=== PATIENT | male | born 1995 | race American Indian/Alaskan Native ===

== ENCOUNTER 2017-05-13 02:21 | Emergency (ER) | payer SELFPAY ==
[2017-05-13 03:09] LABS: Basophils % (Auto) 0.2 % (0.0-1.8); Hematocrit 43.5 % (35.5-45.6); Hemoglobin 14.8 gm/dl (11.8-15.2); Mean Corpuscular HGB Conc 34 % (32-34); Mean Corpuscular Hemoglobin 31 pg (28-32); Mean Corpuscular Volume 92 fl (84-94); Platelet Count 244 K/mm3 (140-440); Red Blood Count 4.73 M/mm3 (3.65-5.03); Red Cell Distribution Width 13.5 % (13.2-15.2); White Blood Count 14.2 K/mm3 (4.5-11.0)
[2017-05-13 03:21] LABS: Alanine Aminotransferase 20 units/L (7-56); Albumin/Globulin Ratio 1.1 %; Alkaline Phosphatase 73 units/L (35-129); Anion Gap 29 mmol/L; BUN/Creatinine Ratio 17; Blood Urea Nitrogen 19 mg/dL (9-20); Calcium 10.8 mg/dL (8.4-10.2); Carbon Dioxide 17 mmol/L (22-30); Chloride 94.9 mmol/L (98-107); Glucose 124 mg/dL (75-100); Lipase 12 units/L (13-60); Potassium 3.6 mmol/L (3.6-5.0); Sodium 137 mmol/L (137-145); Total Protein 9.4 g/dL (6.3-8.2)
[2017-05-13] MEDS ORDERED: TORADOL ONE (03:44)
[2017-05-13] MEDS ORDERED: ZOFRAN ONE (03:44)
[2017-05-13] MEDS ORDERED: NACL 0.9% 1000 ML 1,000 ML ONE (03:45)
[2017-05-13] MEDS ORDERED: ZOFRAN IV ONE (03:53)
[2017-05-13] MEDS ORDERED: TORADOL IV ONE (03:53)
[2017-05-13] MEDS ORDERED: NACL 0.9% 1000 ML 1,000 ML IV ONE ×2 (03:54→13:35)
--- NOTE | 2017-05-13 04:52 | Cat Scan Report ---
FINAL REPORT EXAM: CT ABDOMEN PELVIS W/O CONTRAST. HISTORY: Abdominal pain. TECHNIQUE: Unenhanced axial CT images of the abdomen and pelvis were obtained, with coronal and sagittal reformatted images. No prior studies are available for comparison. FINDINGS: The unenhanced liver, biliary tree, gallbladder, pancreas, spleen, and adrenal glands are unremarkable. The unenhanced kidneys demonstrate no discrete renal lesions. There are no radiopaque urinary tract calculi or evidence of urinary tract obstruction. Evaluation of the bowel is limited due to lack of oral contrast. The left colon and rectum are collapsed, not well evaluated. There is no intestinal obstruction or free air. Of note, the appendix is air-filled, normal in appearance. The abdominal aorta is normal in caliber. There is no pathologic abdominal or pelvic lymphadenopathy. There is no free or loculated fluid collection. The urinary bladder is not well distended, though grossly unremarkable. The prostate gland is normal in size. There is minimal 2 mm retrolisthesis of L5 on S1. The visualized lung bases are clear. IMPRESSION: 1. No radiopaque urinary tract calculi or evidence of urinary tract obstruction. 2. No intestinal obstruction or free air. Normal CT appearance of the appendix.
[2017-05-13 05:47] LABS: Bilirubin,Urine NEG (Negative); Blood,Urine MOD (Negative); Ketones,Urine 80 mg/dL (Negative); Leukocyte Esterase,Urine NEG (Negative); Mucus,Urine 3+ /HPF; Nitrite,Urine NEG (Negative); Urobilinogen,Urine < 2.0 mg/dL (<2.0)
[2017-05-13] MEDS ORDERED: PEPCID PO ONE (13:36)
--- NOTE | 2017-05-13 13:39 | Emergency Department Report ---
<KAYLA GARCIA - Last Filed: 05/13/17 16:02> ED Abdominal Pain HPI - General Chief Complaint: Abdominal Pain Stated Complaint: abdominal pain last pm. here 12 hours. now resolved. Time Seen by Provider: 05/13/17 13:35 Source: patient Mode of arrival: Ambulatory Limitations: No Limitations - History of Present Illness MD Complaint: abdominal pain -: Sudden Severity scale (0 -10): 0 Consistency: now resolved Improves With: nothing Worsens With: nothing Associated Symptoms: nausea, vomiting, diarrhea. denies: fever, chills, constipation, dysuria, hematemesis, hematochezia, melena, hematuria, anorexia, syncope - Related Data Allergies Allergy/AdvReac Type Severity Reaction Status Date / Time No Known Allergies Allergy Unverified 05/13/17 02:31 ED Review of Systems ROS: Stated complaint: N/V/D Other details as noted in HPI Comment: All other systems reviewed and negative Constitutional: no symptoms reported Gastrointestinal: abdominal pain, nausea, vomiting, diarrhea. denies: constipation, hematemesis, melena, hematochezia Genitourinary: as per HPI ED Past Medical Hx - Past Medical History Previous Medical History?: No - Surgical History Past Surgical History?: No - Family History Family history: no significant - Social History Smoking Status: Never Smoker Substance Use Type: None ED Physical Exam - General Limitations: No Limitations General appearance: in no apparent distress - Head Head exam: Present: atraumatic - Eye Eye exam: Present: PERRL - ENT ENT exam: Present: mucous membranes dry - Neck Neck exam: Present: normal inspection - Respiratory Respiratory exam: Present: normal lung sounds bilaterally - Cardiovascular Cardiovascular Exam: Present: regular rate - GI/Abdominal GI/Abdominal exam: Present: soft, normal bowel sounds. Absent: distended, tenderness, guarding, rebound, rigid, diminished bowel sounds, hyperactive bowel sounds, hypoactive bowel sounds, organomegaly, mass, bruit, pulsatile mass , hernia - Rectal Rectal exam: Present: deferred - Extremities Exam Extremities exam: Present: normal inspection - Back Exam Back exam: Present: normal inspection, full ROM. Absent: tenderness, CVA tenderness (R), CVA tenderness (L) - Neurological Exam Neurological exam: Present: alert, oriented X3, CN II-XII intact, normal gait - Psychiatric Psychiatric exam: Present: normal affect, normal mood - Skin Skin exam: Present: warm, dry, intact ED Course Vital Signs 05/13/17 05/13/17 02:26 15:46 Temperature 97.4 F L Pulse Rate 75 85 Respiratory 17 18 Rate Blood Pressure 144/78 Blood Pressure 113/69 [Right] O2 Sat by Pulse 99 99 Oximetry - Reevaluation(s) Reevaluation #1: 05/13/17 14:43 to er last night w severe abd pain he was noted to have hematuria pt thought that it was due to apple juice the pain was acute and went away as fast as it came. he waited 12 hours to be seen in fast track on arrival he was ambulatory and asking to eat abd exam benign snt no n/v/d orthostatic hr on exam sp vomiting with the pain last pm also had some diarrhea he states the pain was periumbilical and denied any dysuria he did not note hematuria when urinating his HPI is consistent with passing of stone. Along w hematuria he has no allergies he is on no meds and is otherwise healthy labs noted ct noted discussed with Dr. Paiz Reevaluation #2: orthostatic bp and hr noted 1L NS taking po. ate lunch and is asking is for more fluid ambulatory and in nad fluids infusing Reevaluation #3: 05/13/17 16:03 PT NOW MONITORED OVER 15 HOURS IN ER EATING VSS NAD NO FEVER NO PAIN N/V/D TAKING PO AND ASKING FOR MORE VOIDING CLEAR GENO URINE WO DIFFICULTY GIVEN NO FEVER AND NONTOX WE ARE GIVING NO ABX W SLIGHT INC WBC PT WILL FU WITH URO. REPEAT UA AND CX SENT CALL PT IF CONCERNING AND NEEDING ANBX ED Medical Decision Making - Lab Data Result diagrams: 05/13/17 02:51 05/13/17 02:51 - Radiology Data Radiology results: report reviewed - Medical Decision Making see note - Differential Diagnosis abd pain acute- now resolved; hematuria Critical care attestation.: If time is entered above; I have spent that time in minutes in the direct care of this critically ill patient, excluding procedure time. ED Disposition Disposition: DC-01 TO HOME OR SELFCARE Is pt being admited?: No Does the pt Need Aspirin: No Condition: Stable Instructions: Kidney Stones (ED), Acute Hematuria (ED) Additional Instructions: rest fluids- hydrate well advance diet as tolerated follow up with urology Referrals: PRIMARY CARE, [Primary Care Provider] - 3-5 Days SUZEI ESCOTO JR, MD [Staff Physician] - 3-5 Days ABBITA ESPINO MD [Staff Physician] - 3-5 Days Time of Disposition: 14:42 <ELAINE PAIZ - Last Filed: 05/17/17 19:34> ED Medical Decision Making - Lab Data Result diagrams: 05/13/17 02:51 05/13/17 02:51
[2017-05-13 15:47] VITALS: BP 113/69
[2017-05-13 16:23] LABS: Bilirubin,Urine NEG (Negative); Blood,Urine SM (Negative); Ketones,Urine NEG (Negative); Leukocyte Esterase,Urine NEG (Negative); Mucus,Urine FEW /HPF; Nitrite,Urine NEG (Negative); Urobilinogen,Urine < 2.0 mg/dL (<2.0); WBC,Urine < 1.0 /HPF (0.0-6.0)
== END 2017-05-13 15:35 | disposition home or self-care (01) ==
LOC: ED 02:21
DX: R31.9 Hematuria, unspecified (principal); R10.9 Unspecified abdominal pain; R11.2 Nausea with vomiting, unspecified; R19.7 Diarrhea, unspecified
CPT/HCPCS: 36415; 74176; 80053; 81001; 83690; 85025; 87086; 96361; 96374; 96375; 99284; J1885; J2405; J7030

== ENCOUNTER 2019-11-22 10:21 | Emergency (ER) | payer OTHER ==
[2019-11-22] MEDS ORDERED: FAMOTIDINE 20 MG/2 ML INJ IV ONE (10:38)
[2019-11-22] MEDS ORDERED: SODIUM CHLORIDE 0.9% 1000 ML 1,000 ML IV ONE (10:38)
[2019-11-22] MEDS ORDERED: HALOPERIDOL LACTATE 5 MG/1 ML INJ IM STA (10:38)
--- NOTE | 2019-11-22 10:46 | Emergency Department Report ---
ED General Adult HPI - General Chief complaint: Abdominal Pain Stated complaint: ABD PAIN PUI?: No Time Seen by Provider: 11/22/19 10:31 Source: patient, EMS ( EMS documentation not available at time of chart dictation ), RN notes reviewed, old records reviewed Mode of arrival: Stretcher Limitations: No Limitations - History of Present Illness Initial comments: Patient is a 24-year-old gentleman. He does not have a local primary care doctor. He denies chronic medical conditions. He is brought to the hospital by emergency medical services for nausea and vomiting. Please note that this patient has been seen here in the past multiple times for similar complaints. He has had 2 CT scans of the abdomen pelvis which have been negative for acute pathology, and laboratory work which demonstrated dehydration, but otherwise, fairly unremarkable. He denies fever and cough. He does not think he has been exposed to the piña virus. He presents to the ER today with complaints of nausea and vomiting, accompanied by abdominal cramping, without diarrhea. No fever, no headache, no cough, no testicular pain, no urinary symptoms. His symptoms are waxing and waning, and sometimes improve when he takes a hot bath or hot shower. The patient states he does not consume marijuana, and denies secondhand exposure to marijuana. In the emergency room, he is given fluids and haloperidol, which improved his symptoms. He requested pain medicine, and was given acetaminophen and Carafate, which also seem to improve his symptoms. -: Gradual, hour(s) Location: abdomen Radiation: non-radiation Severity scale (0 -10): 10 Quality: other (Cramp) Consistency: intermittent Improves with: medication Worsens with: eating - Related Data Previous Rx's Medication Instructions Recorded Last Taken Type Esomeprazole Magnesium [NexIUM] 40 mg PO QDAY #30 capsule. 07/22/19 Unknown Rx Ondansetron [Zofran Odt] 4 mg PO Q4HR PRN #20 tab.fang 07/22/19 Unknown Rx Acetaminophen [Non-Aspirin Extra 500 mg PO Q6HR PRN #30 tablet 11/22/19 Unknown Rx Strength] Famotidine [Pepcid] 20 mg PO BID #60 tablet 11/22/19 Unknown Rx Kathrine Root [Kathrine] 250 mg PO QID PRN #30 capsule 11/22/19 Unknown Rx Metoclopramide [Reglan] 10 mg PO QID PRN #30 tablet 11/22/19 Unknown Rx Potassium Chloride [K-Dur] 20 meq PO BID #20 tab 11/22/19 Unknown Rx Allergies Allergy/AdvReac Type Severity Reaction Status Date / Time peanut Allergy Unknown Verified 07/21/19 21:35 ED Review of Systems ROS: Stated complaint: ABD PAIN Other details as noted in HPI Constitutional: denies: fever Eyes: denies: eye discharge ENT: denies: other Respiratory: denies: wheezing Cardiovascular: denies: syncope Gastrointestinal: nausea, vomiting Genitourinary: denies: testicular pain Musculoskeletal: as per HPI Skin: as per HPI. denies: lesions Neurological: as per HPI. denies: weakness Psychiatric: as per HPI Hematological/Lymphatic: denies: easy bleeding ED Past Medical Hx - Past Medical History Previous Medical History?: No - Surgical History Past Surgical History?: No - Social History Smoking Status: Never Smoker - Medications Home Medications: Home Medications Medication Instructions Recorded Confirmed Last Taken Type Esomeprazole Magnesium [NexIUM] 40 mg PO QDAY #30 capsule. 07/22/19 Unknown Rx Ondansetron [Zofran Odt] 4 mg PO Q4HR PRN #20 tab.rapdis 07/22/19 Unknown Rx Acetaminophen [Non-Aspirin Extra 500 mg PO Q6HR PRN #30 tablet 11/22/19 Unknown Rx Strength] Famotidine [Pepcid] 20 mg PO BID #60 tablet 11/22/19 Unknown Rx Kathrine Root [Kathrine] 250 mg PO QID PRN #30 capsule 11/22/19 Unknown Rx Metoclopramide [Reglan] 10 mg PO QID PRN #30 tablet 11/22/19 Unknown Rx Potassium Chloride [K-Dur] 20 meq PO BID #20 tab 11/22/19 Unknown Rx ED Physical Exam - General Limitations: No Limitations General appearance: alert, anxious, in distress - Head Head exam: Present: atraumatic, normocephalic - Eye Eye exam: Present: normal appearance, EOMI. Absent: nystagmus - ENT ENT exam: Present: normal exam, normal orophraynx, mucous membranes moist, normal external ear exam - Neck Neck exam: Present: normal inspection, full ROM. Absent: tenderness, meningismus - Respiratory Respiratory exam: Present: normal lung sounds bilaterally. Absent: respiratory distress - Cardiovascular Cardiovascular Exam: Present: normal rhythm, bradycardia, normal heart sounds. Absent: tachycardia, irregular rhythm, systolic murmur, diastolic murmur, rubs, gallop - GI/Abdominal GI/Abdominal exam: Present: soft, normal bowel sounds. Absent: distended, tenderness, guarding, rebound, rigid, pulsatile mass - Rectal Rectal exam: Present: deferred - Extremities Exam Extremities exam: Present: normal inspection, full ROM, other (2+ pulses noted in the bilateral upper and lower extremities. There is no palpable cord. negative Homans sign. Muscular compartments are soft. The pelvis is stable.). Absent: pedal edema, calf tenderness - Back Exam Back exam: Present: normal inspection, full ROM. Absent: tenderness, CVA t enderness (R), CVA tenderness (L), paraspinal tenderness, vertebral tenderness - Neurological Exam Neurological exam: Present: alert, normal gait, other (No facial droop. Tongue midline. Extraocular movements intact bilaterally. Facial sensation intact to light touch in V1, V2, V3 distribution bilaterally. 5 and a 5 strength in 4 extremities. Sensation intact to light touch in 4 extremities.). Absent: motor sensory deficit - Psychiatric Psychiatric exam: Present: anxious - Skin Skin exam: Present: warm, dry, intact, normal color. Absent: rash ED Course Vital Signs 11/22/19 11/22/19 11/22/19 10:29 10:30 10:33 Temperature 98.4 F Pulse Rate 63 78 72 Respiratory 15 18 19 Rate Blood Pressure Blood Pressure 132/67 [Right] O2 Sat by Pulse 100 97 100 Oximetry 11/22/19 11/22/19 11/22/19 10:46 11:51 12:58 Temperature Pulse Rate 76 53 L 50 L Respiratory 36 H 14 18 Rate Blood Pressure 132/67 Blood Pressure 135/69 133/60 [Right] O2 Sat by Pulse 99 100 100 Oximetry - Reevaluation(s) Reevaluation #1: 11/22/19 12:47 No active vomiting. Urinalysis is appreciated, urine toxicology screen suggest the presence of cannabinoid exposure. Patient suitable for discharge at this time. He is clinically sober at this time. ED Medical Decision Making - Lab Data Result diagrams: 11/22/19 10:58 11/22/19 10:58 Vital Signs 11/22/19 11/22/19 11/22/19 10:29 10:30 10:33 Temperature 98.4 F Pulse Rate 63 78 72 Respiratory 15 18 19 Rate Blood Pressure Blood Pressure 132/67 [Right] O2 Sat by Pulse 100 97 100 Oximetry 11/22/19 11/22/19 10:46 11:51 Temperature Pulse Rate 76 53 L Respiratory 36 H 14 Rate Blood Pressure 132/67 Blood Pressure 135/69 [Right] O2 Sat by Pulse 99 100 Oximetry Lab Results 11/22/19 11/22/19 11/22/19 Range/Units 10:58 10:58 10:58 Hgb 12.7 (11.8-15.2) gm/dl Hct 37.5 (35.5-45.6) % Plt Count 243 (140-440) K/mm3 Sodium 138 (137-145) mmol/L Potassium 3.3 L (3.6-5.0) mmol/L Chloride 102.8 (98-107) mmol/L Carbon Dioxide 20 L (22-30) mmol/L Anion Gap 19 mmol/L BUN 9 (9-20) mg/dL Creatinine 1.0 (0.8-1.5) mg/dL Estimated GFR > 60 ml/min BUN/Creatinine Ratio 9 % Glucose 167 H (75-100) mg/dL Calcium 10.1 (8.4-10.2) mg/dL Magnesium 1.70 (1.7-2.3) mg/dL Total Bilirubin 0.70 (0.1-1.2) mg/dL AST 23 (5-40) units/L ALT 19 (7-56) units/L Alkaline Phosphatase 76 (35-129) units/L Total Creatine Kinase 196 H (55-170) units/L Total Protein 7.7 (6.3-8.2) g/dL Albumin 4.3 (3.9-5) g/dL Albumin/Globulin Ratio 1.3 % Lipase 23 (13-60) units/L - EKG Data -: EKG Interpreted by Or Rate: bradycardia - EKG Data When compared to previous EKG there are: previous EKG unavailable 11/22/19 12:13 There is no prior EKG available for comparison. Sinus rhythm, normal axis, bradycardia, 58 bpm, AK interval prolonged, 251 ms. QTC prolonged, 463 ms. High left ventricular voltage. EKG is abnormal, there is no prior for comparison. Not a STEMI - Medical Decision Making Differential diagnosis, including but not limited to: Cyclic vomiting syndrome, cannabinoid hyperemesis syndrome, dehydration, electrolyte derangement Assessment and plan: 24-year-old gentleman, with recurrence of nausea and vomiting, has had multiple unremarkable work-ups at this hospital in the past, who endorses improvement in symptoms when he takes a hot bath or hot shower. He denies marijuana consumption to me. He is clinically sober at this time, with a GCS of 15. I suspect the patient is being dishonest about marijuana consumption, as it is fairly ubiquitous in this particular locale. Patient treated empirically with fluids and haloperidol, and supportive therapy, which improved his symptoms. He was given oral medications, which improved his symptoms. He does not meet criteria for hospitalization or admission at this time. He will need to follow-up with outpatient gastroenterology. He can also follow- up with an outpatient primary care doctor or regulatory affairs intern for monitoring of his incidental asymptomatic EKG abnormalities. 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 No arrhythmias were noted. Critical care attestation.: If time is entered above; I have spent that time in minutes in the direct care of this critically ill patient, excluding procedure time. ED Disposition Clinical Impression: History of nausea, Hypokalemia, Abnormal EKG Disposition: DC-01 TO HOME OR SELFCARE Is pt being admited?: No Does the pt Need Aspirin: No Condition: Stable Additional Instructions: Avoid consumption of Motrin, ibuprofen, Naprosyn, Aleve, heavy and/or spicy foods. Avoid consumption of alcohol. Avoid consumption and exposure to marijuana, cannabis, which is likely causing/contributing to the patient's symptoms. Take the pain medication, nausea medication as needed and directed. Follow-up with your primary care doctor within the next [address] Garibay is a local primary care doctor. Follow-up with a instructional resource teacher within the next [address] Lyles is a local instructional resource teacher. EKG demonstrated nonspecific nonemergent abnormalities, which should be monit ored and followed up by either a primary care doctor or regulatory affairs intern. Patient may follow-up with the aforementioned primary care doctor, or follow-up with a local regulatory affairs intern, such as Dr. Rodriguez, as an outpatient. Please return to the emergency room right away with projectile vomiting, change in mental status, confusion, inability to tolerate liquid feeds, worsened pain, migration of pain, or new, worsened or different symptoms not present on the initial emergency room evaluation. In addition to the prescribed pain medications, patient may purchase hot sauce [id number] at any local supermarket, rub it on his abdomen when he is having symptoms, and this may assist with his symptoms. Prescriptions: Kathrine Root [Kathrine] 250 mg PO QID PRN #30 capsule PRN Reason: Nausea Potassium Chloride [K-Dur] 20 meq PO BID #20 tab Acetaminophen [Non-Aspirin Extra Strength] 500 mg PO Q6HR PRN #30 tablet PRN Reason: Pain , Severe (7-10) Famotidine [Pepcid] 20 mg PO BID #60 tablet Metoclopramide [Reglan] 10 mg PO QID PRN #30 tablet PRN Reason: Nausea Referrals: REMEDIOS GARIBAY MD [Staff Physician] - 7-10 days MUNDO DASH MD [Staff Physician] - as needed CARMEN RODRIGUEZ MD [Staff Physician] - as needed
[2019-11-22] MEDS ORDERED: D5W/0.45% NACL 1,000 ML IV SCH (11:00)
[2019-11-22 11:38] LABS: Hematocrit 37.5 % (35.5-45.6); Hemoglobin 12.7 gm/dl (11.8-15.2)
[2019-11-22 11:55] LABS: Alanine Aminotransferase 19 units/L (7-56); Albumin 4.3 g/dL (3.9-5); BUN/Creatinine Ratio 9; Blood Urea Nitrogen 9 mg/dL (9-20); Calcium 10.1 mg/dL (8.4-10.2); Hemolysis Index 6
[2019-11-22] MEDS ORDERED: POTASSIUM CHLORIDE ER 20 MEQ TAB PO ONE (11:58)
[2019-11-22] MEDS ORDERED: SUCRALFATE 1 GM/10 ML ORAL LIQD PO ONE (11:59)
[2019-11-22] MEDS ORDERED: ACETAMINOPHEN 325 MG TAB PO ONE (11:59)
[2019-11-22 12:25] LABS: Bacteria,Urine 1+ /HPF (Negative); Bilirubin,Urine NEG (Negative); Blood,Urine NEG (Negative); Color,Urine Yellow (Yellow); Mucus,Urine FEW /HPF; Urobilinogen,Urine < 2.0 mg/dL (<2.0)
[2019-11-22 12:27] LABS: Amphetamine Screen,Urine PRESUMPTIVE NEGATIVE; Benzodiazepines Screen,Urine PRESUMPTIVE NEGATIVE; Cocaine Screen,Urine PRESUMPTIVE NEGATIVE; Methadone Screen,Urine PRESUMPTIVE NEGATIVE; Opiate Screen,Urine PRESUMPTIVE NEGATIVE
[2019-11-22 12:45] LABS: Cannabinoid Screen,Urine PRESUMPTIVE POSITIVE
[2019-11-22 12:59] VITALS: BP 133/60
== END 2019-11-22 13:26 | disposition home or self-care (01) ==
LOC: ED 10:21
DX: E87.6 Hypokalemia (principal); R94.31 Abnormal electrocardiogram [ECG] [EKG]; Z79.899 Other long term (current) drug therapy; Z91.010 Allergy to peanuts
CPT/HCPCS: 36415; 80053; 80307; 81001; 82550; 83690; 83735; 85014; 85018; 85049; 93005; 96361; 96372; 96374; 99284; J1630; J7030

== ENCOUNTER 2019-11-25 11:32 | Emergency (ER) | payer OTHER ==
[2019-11-25] MEDS ORDERED: PANTOPRAZOLE 40 MG INJ IV ONE (11:53)
[2019-11-25] MEDS ORDERED: ONDANSETRON 4 MG/2 ML INJ IV ONE (11:53)
[2019-11-25] MEDS ORDERED: SODIUM CHLORIDE 0.9% 1000 ML 1,000 ML IV ONE (11:53)
[2019-11-25] MEDS ORDERED: METOCLOPRAMIDE 10 MG/2 ML INJ IV ONE (11:54)
--- NOTE | 2019-11-25 11:57 | Emergency Department Report ---
ED Abdominal Pain HPI - General Chief Complaint: Abdominal Pain Stated Complaint: VOMIT/DIARRHEA/STOMACH PAIN Time Seen by Provider: 11/25/19 11:45 Source: patient Mode of arrival: Ambulatory Limitations: No Limitations - History of Present Illness Initial Comments: Patient is 24 years old male with no significant past medical history. Patient presented to the ER complaining of diffuse abdominal pain, crampy in nature associated with nausea and vomiting. Patient denied any fever or chills. 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 Patient stated the symptoms improved a little bit and then last night he started vomiting again and having abdominal pain. Patient had a multiple ER visit for similar complaint before MD Complaint: abdominal pain -: days(s) (5) Location: diffuse Radiation: none Migration to: no migration Severity: moderate Quality: cramping - Related Data Previous Rx's Medication Instructions Recorded Last Taken Type Esomeprazole Magnesium [NexIUM] 40 mg PO QDAY #30 capsule. 07/22/19 Unknown Rx Ondansetron [Zofran Odt] 4 mg PO Q4HR PRN #20 tab.rapdis 07/22/19 Unknown Rx Acetaminophen [Non-Aspirin Extra 500 mg PO Q6HR PRN #30 tablet 11/22/19 Unknown Rx Strength] Famotidine [Pepcid] 20 mg PO BID #60 tablet 11/22/19 Unknown Rx Kathrine Root [Kathrine] 250 mg PO QID PRN #30 capsule 11/22/19 Unknown Rx Metoclopramide [Reglan] 10 mg PO QID PRN #30 tablet 11/22/19 Unknown Rx Potassium Chloride [K-Dur] 20 meq PO BID #20 tab 11/22/19 Unknown Rx Allergies Allergy/AdvReac Type Severity Reaction Status Date / Time peanut Allergy Unknown Verified 07/21/19 21:35 ED Review of Systems ROS: Stated complaint: VOMIT/DIARRHEA/STOMACH PAIN Other details as noted in HPI Comment: All other systems reviewed and negative Constitutional: denies: chills, fever Respiratory: denies: cough, shortness of breath, SOB with exertion Cardiovascular: denies: chest pain, palpitations Gastrointestinal: abdominal pain, nausea, vomiting, constipation. denies: diarrhea, hematemesis, melena, hematochezia ED Past Medical Hx - Past Medical History Previous Medical History?: No - Surgical History Past Surgical History?: No - Social History Smoking Status: Never Smoker Substance Use Type: Marijuana - Medications Home Medications: Home Medications Medication Instructions Recorded Confirmed Last Taken Type Esomeprazole Magnesium [NexIUM] 40 mg PO QDAY #30 capsule. 07/22/19 Unknown Rx Ondansetron [Zofran Odt] 4 mg PO Q4HR PRN #20 tab.fang 07/22/19 Unknown Rx Acetaminophen [Non-Aspirin Extra 500 mg PO Q6HR PRN #30 tablet 11/22/19 Unknown Rx Strength] Famotidine [Pepcid] 20 mg PO BID #60 tablet 11/22/19 Unknown Rx Kathrine Root [Kathrine] 250 mg PO QID PRN #30 capsule 11/22/19 Unknown Rx Metoclopramide [Reglan] 10 mg PO QID PRN #30 tablet 11/22/19 Unknown Rx Potassium Chloride [K-Dur] 20 meq PO BID #20 tab 11/22/19 Unknown Rx ED Physical Exam - General Limitations: No Limitations General appearance: alert, in no apparent distress - Head Head exam: Present: atraumatic, normocephalic, normal inspection - Eye Eye exam: Present: normal appearance - ENT ENT exam: Present: mucous membranes dry - Neck Neck exam: Present: normal inspection, full ROM. Absent: tenderness, meningismus, lymphadenopathy, thyromegaly - Respiratory Respiratory exam: Present: normal lung sounds bilaterally - Cardiovascular Cardiovascular Exam: Present: regular rate, normal rhythm, normal heart sounds - GI/Abdominal GI/Abdominal exam: Present: soft, tenderness, normal bowel sounds. Absent: distended, guarding, rebound, rigid, organomegaly, mass, bruit, pulsatile mass, hernia - Extremities Exam Extremities exam: Present: normal inspection, full ROM, normal capillary refill. Absent: pedal edema, calf tenderness - Back Exam Back exam: Present: normal inspection, full ROM. Absent: CVA tenderness (R), CVA tenderness (L) - Neurological Exam Neurological exam: Present: alert, oriented X3, CN II-XII intact, normal gait, reflexes normal. Absent: motor sensory deficit - Psychiatric Psychiatric exam: Present: normal mood - Skin Skin exam: Present: warm, intact, normal color ED Course Vital Signs 11/25/19 11/25/19 11/25/19 11:36 11:37 13:19 Temperature 97.8 F 97.8 F Pulse Rate 64 65 84 Respiratory 24 24 16 Rate Blood Pressure 131/66 [Left] O2 Sat by Pulse 100 100 96 Oximetry ED Medical Decision Making - Lab Data Result diagrams: 11/25/19 12:25 11/25/19 12:25 - Radiology Data Radiology results: report reviewed - Medical Decision Making Patient is 24 years old male with no significant past medical history. Patient presented to the ER complaining of diffuse abdominal pain, crampy in nature associated with nausea and vomiting. Patient denied any fever or chills. 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 Patient stated the symptoms improved a little bit and then last night he started vomiting again and having abdominal pain. Patient had a multiple ER visit for similar complaint before. Patient received normal saline, Reglan, Benadryl, Benadryl and Protonix. Patient stated that he is feeling much better. Labs showed potassium of 2.7. Patient given 20 mEq IV and [address] abdomen and pelvis with IV contrast is negative for acute finding.patient is no longer vomiting and stated that he is wanted to go home. Patient UDS showed marijuana. Given his similar presentation before I suspected cannabinoid syndrome, I counseled the patient about cessation of marijuana. Patient also advised to follow-up with her GI doctor for further management. Critical care attestation.: If time is entered above; I have spent that time in minutes in the direct care of this critically ill patient, excluding procedure time. ED Disposition Clinical Impression: Cannabinoid hyperemesis syndrome, Hypokalemia, Abdominal pain, Nausea and vomiting Disposition: -01 TO HOME OR SELFCARE Is pt being admited?: No Condition: Stable Instructions: Abdominal Pain (ED) Referrals: YASMIN NGUYỄN MD [Primary Care Provider] - 3-5 Days [facility] [Provider Group] - 3-5 Days
[2019-11-25 12:48] LABS: Basophils % (Auto) 0.1 % (0.0-1.8); Hemoglobin 14.2 gm/dl (11.8-15.2); Lymphocytes # (Auto) 1.8 K/mm3 (1.2-5.4); Lymphocytes % (Auto) 19.5 % (13.4-35.0); Mean Corpuscular HGB Conc 35 % (32-34); Mean Corpuscular Volume 94 fl (84-94); Monocytes # (Auto) 0.6 K/mm3 (0.0-0.8); Monocytes % (Auto) 6.9 % (0.0-7.3); Platelet Count 310 K/mm3 (140-440); Red Blood Count 4.35 M/mm3 (3.65-5.03); Red Cell Distribution Width 14.1 % (13.2-15.2)
[2019-11-25 12:58] LABS: Bilirubin,Urine NEG (Negative); Blood,Urine NEG (Negative); Color,Urine Straw (Yellow); Protein,Urine <15 mg/dL mg/dL (Negative); Urobilinogen,Urine < 2.0 mg/dL (<2.0); WBC,Urine < 1.0 /HPF (0.0-6.0)
[2019-11-25 13:11] LABS: Alanine Aminotransferase 41 units/L (7-56); Albumin 4.5 g/dL (3.9-5); BUN/Creatinine Ratio 5; Bilirubin,Direct 0.3 mg/dL (0-0.2); Blood Urea Nitrogen 6 mg/dL (9-20); Calcium 10.5 mg/dL (8.4-10.2); Hemolysis Index 9
[2019-11-25 13:15] LABS: Amphetamine Screen,Urine PRESUMPTIVE NEGATIVE; Benzodiazepines Screen,Urine PRESUMPTIVE NEGATIVE; Cocaine Screen,Urine PRESUMPTIVE NEGATIVE; Methadone Screen,Urine PRESUMPTIVE NEGATIVE; Opiate Screen,Urine PRESUMPTIVE NEGATIVE
[2019-11-25] MEDS ORDERED: diphenhydrAMINE 50 MG/ML VIAL IV ONE (13:28)
[2019-11-25 13:37] LABS: Cannabinoid Screen,Urine PRESUMPTIVE POSITIVE
[2019-11-25] MEDS: POTASSIUM CHLORIDE 10 MEQ 10 MEQ/100 ML BAG IV SCH ×2 (13:51→16:23)
--- NOTE | 2019-11-25 14:18 | Cat Scan Report ---
CT ABDOMEN AND PELVIS WITH CONTRAST HISTORY: MAIN: abdominal pain mid, 100 ml Omni 300 COMPARISON: 07/21/2019 TECHNIQUE: Axial CT images were obtained through the abdomen and pelvis after 100 cc of Omnipaque 300 intravenously. Sagittal and coronal reformatted images. All CT scans at this location are performed using CT dose reduction for ALARA by means of automated exposure control. FINDINGS: CT ABDOMEN: Lung Bases: Clear. Liver: No significant abnormality. Biliary: No significant abnormality. Spleen: No significant abnormality. Unenlarged. Pancreas: No significant abnormality. Adrenals: No significant abnormality. Kidneys: No significant abnormality. Lymphatics: No lymphadenopathy. Vasculature: No significant abnormality. Bowel/Peritoneum: No significant abnormality. No free air. No free fluid. Normal appendix. CT PELVIS: : No significant abnormality. Osseous Structures: No significant abnormality. Additional Findings: None IMPRESSION: No significant abnormality. Signer Name: Kamar Medina Jr, MD Signed: 11/25/2019 2:14 PM Workstation Name: [id number]
[2019-11-25] MEDS ORDERED: DICYCLOMINE 20 MG/2 ML INJ IM ONE (14:45)
[2019-11-25 16:57] VITALS: BP 140/64
== END 2019-11-25 16:58 | disposition home or self-care (01) ==
LOC: ED 11:32
DX: F12.188 Cannabis abuse with other cannabis-induced disorder (principal); E87.6 Hypokalemia; R11.2 Nausea with vomiting, unspecified; R10.84 Generalized abdominal pain; F12.10 Cannabis abuse, uncomplicated; Z79.899 Other long term (current) drug therapy; Z91.010 Allergy to peanuts
CPT/HCPCS: 36415; 74177; 80048; 80076; 80307; 81001; 83690; 85025; 96361; 96365; 96372; 96375; 99284; C9113; J0500; J1200; J2405; J2765; J3480; J7030; Q9967

== ENCOUNTER 2019-11-26 18:57 | Emergency (ER) | payer OTHER ==
[2019-11-26 19:29] LABS: Bacteria,Urine 1+ /HPF (Negative); Bilirubin,Urine NEG (Negative); Blood,Urine NEG (Negative); Color,Urine Amber (Yellow); Mucus,Urine 3+ /HPF
[2019-11-26] MEDS ORDERED: LACTATED RINGERS 1,000 ML IV ONE ×2 (20:17→21:28)
[2019-11-26] MEDS ORDERED: KETOROLAC 30 MG/1 ML INJ IV ONE (20:17)
[2019-11-26] MEDS ORDERED: ONDANSETRON 4 MG/2 ML INJ IV ONE (20:17)
[2019-11-26 20:37] LABS: Basophils % (Auto) 0.6 % (0.0-1.8); Eosinophils % (Auto) 0.2 % (0.0-4.3); Hematocrit 35.9 % (35.5-45.6); Hemoglobin 12.4 gm/dl (11.8-15.2); Lymphocytes # (Auto) 1.6 K/mm3 (1.2-5.4); Lymphocytes % (Auto) 20.7 % (13.4-35.0); Mean Corpuscular HGB Conc 34 % (32-34); Mean Corpuscular Volume 96 fl (84-94); Monocytes # (Auto) 0.7 K/mm3 (0.0-0.8); Monocytes % (Auto) 8.7 % (0.0-7.3); Platelet Count 270 K/mm3 (140-440); Red Blood Count 3.75 M/mm3 (3.65-5.03); Red Cell Distribution Width 13.9 % (13.2-15.2)
[2019-11-26 21:00] LABS: Alanine Aminotransferase 57 units/L (7-56); Albumin 4.1 g/dL (3.9-5); BUN/Creatinine Ratio 6; Blood Urea Nitrogen 7 mg/dL (9-20); Calcium 9.9 mg/dL (8.4-10.2); Hemolysis Index 11
[2019-11-26] MEDS ORDERED: POTASSIUM CHLORIDE ER 20 MEQ TAB PO ONE (21:31)
--- NOTE | 2019-11-26 22:38 | Emergency Department Report ---
ED Abdominal Pain HPI - General Chief Complaint: Urogenital-Male Stated Complaint: DEHYDRATED PUI?: No Source: patient Mode of arrival: Ambulatory Limitations: No Limitations - History of Present Illness Initial Comments: Patient is a 24-year-old -Maldivian male with no past medical history presents to the ED with complaint of acute onset persistent nausea and vomiting with diffuse abdominal pain for the last 4 days after smoking marijuana. Pat argenis states that he was initially evaluated in this ED for the same symptoms and was discharged home on medication but was unable to take medications because of persistent nausea and vomiting. Patient denies fever, chills, dizziness, syncope, diarrhea, chest pain, shortness of breath, dysuria, urinary frequency and urgency, change in vision, sore throat, headache, cough or hematuria. MD Complaint: abdominal pain, other (nausea and vomiting) -: Sudden, days(s) (4) Location: diffuse Radiation: none Migration to: no migration Severity scale (0 -10): 7 Quality: cramping, aching, sharp Consistency: intermittent Improves With: nothing Worsens With: vomiting Associated Symptoms: denies other symptoms, nausea, vomiting, anorexia. denies: diarrhea, fever, dysuria, hematemesis, hematochezia, melena, hematuria, syncope - Related Data Previous Rx's Medication Instructions Recorded Last Taken Type Esomeprazole Magnesium [NexIUM] 40 mg PO QDAY #30 capsule. 07/22/19 Unknown Rx Acetaminophen [Non-Aspirin Extra 500 mg PO Q6HR PRN #30 tablet 11/22/19 Unknown Rx Strength] Kathrine Root [Kathrine] 250 mg PO QID PRN #30 capsule 11/22/19 Unknown Rx Metoclopramide [Reglan] 10 mg PO QID PRN #30 tablet 11/22/19 Unknown Rx Dicyclomine [Bentyl] 20 mg PO QID #30 tablet 11/26/19 Unknown Rx Famotidine [Pepcid] 20 mg PO Q12H #60 tablet 11/26/19 Unknown Rx Ondansetron [Zofran ODT TAB] 4 mg PO Q4HR PRN #20 tab.rapdis 11/26/19 Unknown Rx Potassium Chloride [K-Dur] 20 meq PO BID #20 tab 11/26/19 Unknown Rx Allergies Allergy/AdvReac Type Severity Reaction Status Date / Time peanut Allergy Unknown Verified 07/21/19 21:35 ED Review of Systems ROS: Stated complaint: DEHYDRATED Other details as noted in HPI Constitutional: denies: chills, fever Eyes: denies: eye pain, eye discharge, vision change ENT: denies: ear pain, throat pain Respiratory: denies: cough, shortness of breath, wheezing Cardiovascular: denies: chest pain, palpitations Endocrine: no symptoms reported Gastrointestinal: abdominal pain, nausea, vomiting. denies: diarrhea Genitourinary: denies: urgency, dysuria Musculoskeletal: denies: back pain, joint swelling, arthralgia Skin: denies: rash, lesions Neurological: denies: headache, weakness, paresthesias Psychiatric: denies: anxiety, depression Hematological/Lymphatic: denies: easy bleeding, easy bruising ED Past Medical Hx - Past Medical History Previous Medical History?: No - Surgical History Past Surgical History?: No - Social History Smoking Status: Never Smoker Substance Use Type: Marijuana - Medications Home Medications: Home Medications Medication Instructions Recorded Confirmed Last Taken Type Esomeprazole Magnesium [NexIUM] 40 mg PO QDAY #30 capsule. 07/22/19 Unknown Rx Acetaminophen [Non-Aspirin Extra 500 mg PO Q6HR PRN #30 tablet 11/22/19 Unknown Rx Strength] Kathrine Root [Kathrine] 250 mg PO QID PRN #30 capsule 11/22/19 Unknown Rx Metoclopramide [Reglan] 10 mg PO QID PRN #30 tablet 11/22/19 Unknown Rx Dicyclomine [Bentyl] 20 mg PO QID #30 tablet 11/26/19 Unknown Rx Famotidine [Pepcid] 20 mg PO Q12H #60 tablet 11/26/19 Unknown Rx Ondansetron [Zofran ODT TAB] 4 mg PO Q4HR PRN #20 tab.rapdis 11/26/19 Unknown Rx Potassium Chloride [K-Dur] 20 meq PO BID #20 tab 11/26/19 Unknown Rx ED Physical Exam - General Limitations: No Limitations General appearance: alert, in no apparent distress - Head Head exam: Present: atraumatic, normocephalic, normal inspection - Eye Eye exam: Present: normal appearance, PERRL, EOMI Pupils: Present: normal accommodation - ENT ENT exam: Present: normal exam, normal orophraynx, mucous membranes moist, TM's normal bilaterally, normal external ear exam - Neck Neck exam: Present: normal inspection, full ROM - Respiratory Respiratory exam: Present: normal lung sounds bilaterally. Absent: respiratory distress, wheezes, rales, rhonchi, stridor, chest wall tenderness, accessory muscle use, decreased breath sounds, prolonged expiratory - Cardiovascular Cardiovascular Exam: Present: regular rate, normal rhythm, normal heart sounds. Absent: systolic murmur, diastolic murmur, rubs, gallop - GI/Abdominal GI/Abdominal exam: Present: soft, tenderness (Mildly diffuse tenderness, no guarding or rebound), normal bowel sounds. Absent: guarding, rebound, hyperactive bowel sounds - Extremities Exam Extremities exam: Present: normal inspection, full ROM, normal capillary refill - Back Exam Back exam: Present: normal inspection, full ROM. Absent: tenderness, CVA t enderness (R), CVA tenderness (L), muscle spasm, paraspinal tenderness, vertebral tenderness - Neurological Exam Neurological exam: Present: alert, oriented X3, CN II-XII intact, normal gait, reflexes normal - Psychiatric Psychiatric exam: Present: normal affect, normal mood - Skin Skin exam: Present: warm, dry, intact, normal color. Absent: rash ED Medical Decision Making - Lab Data Result diagrams: 11/26/19 20:21 11/26/19 20:21 - Medical Decision Making This is a 24-year-old -Maldivian male with no past medical history presents to the ED with complaint of acute onset persistent nausea and vomiting with diffuse abdominal pain for the last 4 days after smoking marijuana. Patient states that he was initially evaluated in this ED for the same symptoms and was discharged home on medication but was unable to take medications because of persistent nausea and vomiting. In the ED, patient is alert and oriented x3 and is not in distress, but anxious during the physical exams demanding to be admitted to the hospital for 2 days "because I am dehydrated". Patient has been treated in this ED on 2 separate occasions for similar symptoms after he smoked marijuana 4 days ago. Patient was treated today for nausea and vomiting and pain, also given 2 L of IV fluids, and also treated with potassium tablets for mild hypokalemia. Lab test results were reviewed and showed mild hypokalemia of 3.0 mmol/L, mild hyponatremia of 136 mmol/L, AST of 57 and ALT 57. On reevaluation, patient felt better and was discharged home and advised to maintain a clear liquid diet for 12 to 24 hours and take the previously prescribed medications as needed. Patient was advised to return to the ED immediately if symptoms get worse, otherwise follow-up with his primary care physician in 5 to 7 days for reevaluation. - Differential Diagnosis Gastritis; GERD; Gastroenteritis; Dehydration; Critical care attestation.: If time is entered above; I have spent that time in minutes in the direct care of this critically ill patient, excluding procedure time. ED Disposition Clinical Impression: Acute hypokalemia, GERD without esophagitis Abdominal pain Qualifiers: Abdominal location: generalized Qualified Code(s): R10.84 - Generalized abdominal pain Nausea and vomiting Qualifiers: Vomiting type: unspecified Vomiting Intractability: non-intractable Qualified Code(s): R11.2 - Nausea with vomiting, unspecified Disposition: TO HOME OR SELFCARE Is pt being admited?: No Does the pt Need Aspirin: No Condition: Stable Instructions: Gastroenteritis (ED), Acute Nausea and Vomiting (ED), Abdominal Pain (ED) Additional Instructions: Maintain a clear liquid diet for 12 to 24 hours, take medications as needed for nausea and vomiting. Follow-up with your primary care physician in 3 to 5 days for reevaluation or return to the ED immediately if symptoms get worse. Prescriptions: Dicyclomine [Bentyl] 20 mg PO QID #30 tablet Potassium Chloride [K-Dur] 20 meq PO BID #20 tab Famotidine [Pepcid] 20 mg PO Q12H #60 tablet Ondansetron [Zofran ODT TAB] 4 mg PO Q4HR PRN #20 tab.rapdis PRN Reason: Nausea Referrals: [facility] [Provider Group] - 3-5 Days Time of Disposition: 22:39 Print Language: SPANISH
[2019-11-26] MEDS ORDERED: ALUM-MAG HYDROXIDE-SIMETHICONE 200-200-20MG/5ML ORAL LIQD 30 ML PO ONE (23:06)
[2019-11-26] MEDS ORDERED: LIDOCAINE VISCOUS 2% 15 ML ORAL LIQD PO ONE (23:06)
[2019-11-26] MEDS ORDERED: FAMOTIDINE 20 MG/2 ML INJ IV ONE (23:06)
[2019-11-26] MEDS ORDERED: METOCLOPRAMIDE 10 MG/2 ML INJ IV ONE (23:06)
[2019-11-26] MEDS ORDERED: diphenhydrAMINE 50 MG/ML VIAL IV ONE (23:06)
[2019-11-26 23:27] VITALS: BP 148/81
== END 2019-11-26 23:46 | disposition home or self-care (01) ==
LOC: ED 18:57
DX: K21.0 Gastro-esophageal reflux disease with esophagitis (principal); R10.84 Generalized abdominal pain; R11.2 Nausea with vomiting, unspecified; E87.6 Hypokalemia; F12.10 Cannabis abuse, uncomplicated; Z79.899 Other long term (current) drug therapy; Z91.010 Allergy to peanuts
CPT/HCPCS: 36415; 80053; 81001; 83690; 85025; 96361; 96374; 96375; 99283; J1200; J1885; J2405; J2765; J7120